=== PATIENT | female | born 1975 | race Caucasian/White ===

== ENCOUNTER 2021-02-21 14:26 | Outpatient (CLI) | payer OTHER ==
--- NOTE | 2021-02-21 15:27 | XRAY Report ---
PROCEDURE: Thoracic Spine 2 View INDICATIONS: NECK AND BACK PAIN TECHNIQUE: 2 views of the thoracic spine were acquired. COMPARISON: None. FINDINGS: Bones: No acute fractures or dislocations. No suspicious bony lesions. 12 pairs of ribs are noted, and appear intact where visualized. Mild degenerative endplate changes are seen at multiple levels in the midthoracic spine. Soft tissues: No paravertebral stripe thickening. IMPRESSION: No acute osseous abnormality. Minimal spondylosis. Reviewed by: Shaun Palomino MD on 02/21/2021 3:26 PM PDT Approved by: Shaun Palomino MD on 02/21/2021 3:26 PM PDT Station ID: [id number]
--- NOTE | 2021-02-21 16:58 | XRAY Report ---
PROCEDURE: Shoulder 3 View LT INDICATIONS: SHOULDER JOINT PAIN, LEFT TECHNIQUE: views of the shoulder were acquired. COMPARISON: None. FINDINGS: Bones: No fractures or dislocations. No suspicious bony lesions. Visualized ribs appear intact. Scattered subchondral sclerosis and spurring. Soft tissues: No suspicious soft tissue calcifications. IMPRESSION: Mild degenerative changes. If the patient's pain or other symptoms persist, consider fur ther evaluation with MRI. Reviewed by: Nilay Madera MD on 02/21/2021 4:57 PM PDT Approved by: Nilay Madera MD on 02/21/2021 4:57 PM PDT Station ID: [id number]
== END 2021-02-21 23:59 ==
LOC: DI.N 14:26
PROVIDERS: ATTEND Family Medicine
DX: M54.2 Cervicalgia (principal); M47.814 Spondylosis without myelopathy or radiculopathy, thoracic region; M25.512 Pain in left shoulder; M19.012 Primary osteoarthritis, left shoulder

== ENCOUNTER 2021-07-23 08:00 | Outpatient (CLI) | payer OTHER ==
--- NOTE | 2021-07-23 16:54 | XRAY Report ---
PROCEDURE: Hip w/Pelvis 1V LT INDICATIONS: L HIP PX TECHNIQUE: AP pelvis with lateral view(s) of the left hip(s). COMPARISON: None. FINDINGS: Bones: No fractures or dislocations. Pelvic ring appears intact. No suspicious bony lesions. Oste itis pubis. Soft tissues: The visualized bowel gas pattern is normal. No suspicious soft tissue calcifications. IMPRESSION: 1. Osteitis pubis. 2. No acute fracture. No osseous lesion. If symptoms and/or clinical suspicion for pathology continue , further assessment with repeat plain films, or advanced imaging (e.g., CT, MRI, or bone scan) is re commended for further assessment. Reviewed by: Roshan Carrillo MD on 07/23/2021 4:52 PM PST Approved by: Roshan Carrillo MD on 07/23/2021 4:52 PM PST Station ID: [id number]
== END 2021-07-23 23:59 | disposition home or self-care (01) ==
LOC: DI.N 08:00
PROVIDERS: ATTEND Physician Assistant
DX: M86.9 Osteomyelitis, unspecified (principal)

== ENCOUNTER 2021-07-28 20:05 | Outpatient (CLI) | payer OTHER ==
--- NOTE | 2021-07-29 14:48 | Ultrasound Report ---
PROCEDURE: Pelvic w/Transvaginal INDICATIONS: PELVIC PAIN TECHNIQUE: Real-time scanning was performed of the pelvic organs, with image documentation. Additional endovagi nal scanning was necessary due to incomplete visualization of the adnexal and endometrial structures by transabdominal scanning. COMPARISON: None. FINDINGS: No pathologic free abdominal or pelvic fluid. Uterus: Uterus is normal in size at 6.4 x 3.5 x 4.0 cm., Volume 48 cc The endometrium measures 5.1 mm in combined thickness. Ovaries: Right ovary measures 1.7 x 1.2 x 1.5 cm, volume 1.6 cc. Left ovary measures 1.3 x 1.2 x 1.5 cm, volume 1.2 cc. IMPRESSION: 1. No visualized cause of pelvic pain. Reviewed by: Gudelia Medina MD on 07/29/2021 2:46 PM PST Approved by: Gudelia Medina MD on 07/29/2021 2:46 PM PST Station ID: [id number]
== END 2021-07-28 20:06 | disposition home or self-care (01) ==
LOC: DI 20:05
PROVIDERS: ATTEND Obstetrics & Gynecology
DX: R10.2 Pelvic and perineal pain (principal)

== ENCOUNTER 2022-01-07 06:55 | Outpatient (CLI) | payer OTHER ==
--- NOTE | 2022-01-07 12:27 | MRI Report ---
PROCEDURE: Hip LT W/O INDICATIONS: LEFT HIP/ ANTERIOR PUBIS PELVIC PAIN TECHNIQUE: Noncontrast coronal T1 spin echo and STIR through the bony pelvis. Coronal and axial T2 fast spin ec ho with fat saturation, sagittal T1 spin echo, and oblique axial T2 fast spin echo with fat saturatio n through the hip. COMPARISON: Left hip radiograph dated 07/23/2021. FINDINGS: Image quality: Excellent. Bones and joints: Mild bilateral hip joint osteoarthritic changes are seen with joint space narrowing and subchondral sclerosis. Slight prominence of superior left femoral head neck junction is seen wit h subtle subcortical T2 hyperintense signal which can be seen associated with cam-type femoral acetab ular impingement.. No intraosseous lesions or fractures. No avascular necrosis of the femoral heads . The visualized lower lumbar spine appears normally aligned. Tendons: The gluteus medius and minimus tendinosis at their insertions on greater trochanter is seen , without associated muscle atrophy. The iliopsoas tendon appears intact, without adjacent bursal fl uid collections. The origin of the hamstring tendon is intact at the ischial tuberosity. Labrum and cartilage: Subtle signal abnormality involving superior anterior labrum at 12 to 1:00 posi tion is seen concerning for subtle superior anterior labral tear. Cartilage surface of the femoral he ad appears of normal thickness. The alpha angle of the femur is within normal limits at less than 55 degrees. Soft tissues: Visualized muscles demonstrate normal bulk and internal signal. The proximal sciatic neurovascular bundle appears normal adjacent to the hamstring tendons. No free pelvic fluid. Bladde r wall thickness is normal. Genitourinary structures and bowel loops appear normal where visualized. IMPRESSION: 1. Mild left hip joint osteoarthritis. No fracture or dislocation. No evidence of avascular necrosis of femoral head. Prominence of left femoral head neck junction which may be seen associated with cam- type femoral acetabular impingement. 2. Distal left gluteus medius and minimus tendinosis. No other muscle or tendon signal abnormality. 3. Finding is suggestive of subtle superior anterior labral tear. Reviewed by: Matthieu Chavez MD on 01/07/2022 12:26 PM PDT Approved by: Matthieu Chavez MD on 01/07/2022 12:26 PM PDT Station ID: [id number]
== END 2022-01-07 06:56 | disposition home or self-care (01) ==
LOC: DI 06:55
PROVIDERS: ATTEND Internal Medicine
DX: M16.12 Unilateral primary osteoarthritis, left hip (principal); M67.854 Other specified disorders of tendon, left hip; R93.6 Abnormal findings on diagnostic imaging of limbs